=== PATIENT | female | born 1980 | race Asian ===

== ENCOUNTER 2017-06-02 14:00 | Emergency (ER) | payer MEDICAID ==
[~2017-06-02] VITALS: Ht 162.6 cm; Wt 57.6 kg
[2017-06-02 14:19] VITALS: BP 138/83; Ht 162.6 cm; Wt 57.6 kg
== END 2017-06-02 17:09 | disposition home or self-care (01) ==
LOC: ED 14:00
DX: R07.81 Pleurodynia (principal); R05 Cough; F17.210 Nicotine dependence, cigarettes, uncomplicated
CPT/HCPCS: J1885